=== PATIENT | female | born 1970 | race Caucasian/White ===

== ENCOUNTER 2024-06-16 14:34 | Outpatient (CLI) | payer BC ==
[2024-06-16 15:36] LABS: Hematocrit 43.8 % (34.9-44.5); Hemoglobin 14.6 g/dL (12.0-15.5); Mean Corpuscular HGB CONC 33.3 g/dL (32.0-36.0); Mean Corpuscular Hemoglobin 30.8 pg (27.0-33.0); Mean Corpuscular Volume 92.4 fL (81.6-98.3); Mean Platelet Volume 11.2 fL (7.4-10.4); Platelet Count 234 10x3/uL (150-450); RBC Distribution Width 12.7 % (11.5-14.5); Red Blood Cell (RBC) Count 4.74 10x6/uL (3.90-5.03); White Blood Cell (WBC) Count 10.7 10x3/uL (3.5-10.5)
[2024-06-16 15:48] LABS: Anion Gap 15 mmol/L (10-20); BUN (Urea Nitrogen) 14 mg/dL (9.8-20.1); Calc. Creatinine Clearance 0 mL/min (70-130); Carbon Dioxide 27 mmol/L (22-29); Chloride 105 mmol/L (98-107); Estimated GFR 98; Glucose 209 mg/dL (70-105); Sodium 143 mmol/L (136-145)
== END 2024-06-16 14:35 | disposition home or self-care (01) ==
LOC: CSHLAB 14:34
PROVIDERS: ATTEND Surgery
DX: Z01.818 Encounter for other preprocedural examination (principal); C50.112 Malignant neoplasm of central portion of left female breast
CPT/HCPCS: 80048; 85027; 93005; 93010

== ENCOUNTER 2024-06-18 07:39 | Day surgery (SDC) | payer BC ==
[2024-06-18] MEDS ORDERED: PROPOFOL 20 ML ONE (09:07)
[2024-06-18] MEDS ORDERED: fentaNYL 50 mcg/mL 1 mL Vial ONE (09:07)
[2024-06-18] MEDS ORDERED: Isosulfan Blue 50 MG/5 ML VIAL ONE (09:51)
[2024-06-18] MEDS ORDERED: Bupivacaine HCl 0.5%/Epinephrine 1:200,000/PF 30 ml Vial ONE (09:51)
[2024-06-18] MEDS ORDERED: CEFAZOLIN 2 GM VIAL ONE (10:33)
[2024-06-18] MEDS ORDERED: Fentanyl 250 MCG/5 ML VIAL ONE (10:51)
[2024-06-18] MEDS ORDERED: ePHEDrine Sulfate 50 MG/10 ML VIAL ONE (11:07)
[2024-06-18] MEDS ORDERED: Ondansetron PF 4 MG/2 ML Vial ONE (11:10)
[2024-06-18] MEDS ORDERED: diphenhydrAMINE 50 MG/ML VIAL ONE (11:10)
[2024-06-18] MEDS ORDERED: Ketorolac Tromethamine 30 MG (1 mL) VIAL ONE (13:11)
[2024-06-18] MEDS ORDERED: Acetaminophen 500 MG TAB ONE (13:53)
== END 2024-06-18 14:30 | disposition home or self-care (01) ==
LOC: CSHSDC 07:39
PROVIDERS: ATTEND Surgery
PROC: 07B60ZZ Excision of Left Axillary Lymphatic, Open Approach (ICD-10-PCS; principal; 2024-06-18)
PROC: 0HBU0ZZ Excision of Left Breast, Open Approach (ICD-10-PCS; principal; 2024-06-18)
DX: C50.112 Malignant neoplasm of central portion of left female breast (principal); R92.0 Mammographic microcalcification found on diagnostic imaging of breast; I10 Essential (primary) hypertension; E11.9 Type 2 diabetes mellitus without complications; E78.00 Pure hypercholesterolemia, unspecified; F17.200 Nicotine dependence, unspecified, uncomplicated; Z90.49 Acquired absence of other specified parts of digestive tract; Z98.51 Tubal ligation status; Z91.048 Other nonmedicinal substance allergy status; Z88.8 Allergy status to other drugs, medicaments and biological substances; Z79.84 Long term (current) use of oral hypoglycemic drugs; Z79.82 Long term (current) use of aspirin; Z79.899 Other long term (current) drug therapy
CPT/HCPCS: 78195; 88305; 88307; 88342; A9541; C1713; J1200; J1885; J2405; J2704; J3010; Q9968

== ENCOUNTER 2025-03-26 13:09 | Outpatient (CLI) | payer BC | END 2025-03-26 13:10 | disposition home or self-care (01) | LOC: CSHMAMMO 13:09 | PROVIDERS: ATTEND Family Medicine | DX: Z08 Encounter for follow-up examination after completed treatment for malignant neoplasm (principal); Z85.3 Personal history of malignant neoplasm of breast | CPT/HCPCS: 77066; G0279 ==